=== PATIENT | male | born 1990 | race Two or more races ===

== ENCOUNTER 2018-07-08 17:02 | Emergency (ER) | payer OTHER, MEDICAID ==
[~2018-07-08] VITALS: Ht 177.8 cm; Wt 59.0 kg
[2018-07-08 17:23] VITALS: BP 129/76
[2018-07-08] MEDS ORDERED: fentaNYL CITRATE 100 MCG/2 ML VL IV ONE (18:45)
[2018-07-08] MEDS ORDERED: KETOROLAC TROMETH 30 MG/ML 1ML VIAL IV ONE (18:45)
== END 2018-07-08 22:39 | disposition left against medical advice (07) ==
LOC: ER 17:02
DX: S22.051A Stable burst fracture of T5-T6 vertebra, initial encounter for closed fracture (principal); Z53.29 Procedure and treatment not carried out because of patient's decision for other reasons; X50.1XXA Overexertion from prolonged static or awkward postures, initial encounter; Y93.89 Activity, other specified; Y99.8 Other external cause status; Y92.89 Other specified places as the place of occurrence of the external cause
CPT/HCPCS: 72128; 94761; 96374; 96375; 99284; J1885; J3010

== ENCOUNTER 2018-12-07 17:09 | Emergency (ER) | payer OTHER, MEDICAID ==
[~2018-12-07] VITALS: Ht 177.8 cm; Wt 59.0 kg
[2018-12-07 17:22] VITALS: BP 99/68
[2018-12-07] MEDS ORDERED: IBUPROFEN 800 MG TAB PO ONE (17:30)
[2018-12-07] MEDS ORDERED: LACTULOSE 20Gm/30ML SOLN PO ONE (20:30)
[2018-12-07] MEDS ORDERED: HYDROcodone-ACET 10/325MG TAB PO ONE (20:30)
== END 2018-12-07 20:45 | disposition home or self-care (01) ==
LOC: ER 17:09
DX: G89.29 Other chronic pain (principal); F11.10 Opioid abuse, uncomplicated
CPT/HCPCS: 72070

== ENCOUNTER 2020-01-22 10:49 | Emergency (ER) | payer MEDICAID, OTHER ==
[~2020-01-22] VITALS: Ht 177.8 cm; Wt 63.5 kg
[2020-01-22 12:00] VITALS: BP 109/70
[2020-01-22] MEDS ORDERED: ACETAMINOPHEN 500 MG TAB PO ONE (12:30)
[2020-01-22] MEDS ORDERED: BACITRACIN TOP OINT 1 UD PKG TOP ONE (12:30)
[2020-01-22] MEDS ORDERED: LIDOCAINE 1% HCL (LOCAL ANESTH.) INJ 20ML MDV IJ ONE (12:30)
== END 2020-01-22 13:57 | disposition home or self-care (01) ==
LOC: ER 10:49
DX: S61.216A Laceration without foreign body of right little finger without damage to nail, initial encounter (principal); F17.210 Nicotine dependence, cigarettes, uncomplicated; W26.8XXA Contact with other sharp object(s), not elsewhere classified, initial encounter; Y93.89 Activity, other specified; Y92.89 Other specified places as the place of occurrence of the external cause; Y99.8 Other external cause status
CPT/HCPCS: 12001; 99283; J2001

== ENCOUNTER 2023-12-06 21:20 | Emergency (ER) | payer MEDICAID, OTHER ==
[~2023-12-06] VITALS: Ht 177.8 cm; Wt 60.1 kg
[2023-12-06 21:30] VITALS: BP 118/82; PULSE 116; RESP 22; O2SAT 97
[2023-12-06] MEDS ORDERED: diphenhdrAMINE HCL 50 MG/1 ML VL IM ONE (22:00)
[2023-12-06] MEDS ORDERED: KETOROLAC TROMETH 30 MG/ML 1ML VIAL IM ONE (22:00)
[2023-12-06] MEDS ORDERED: ONDANSETRON HCL 4 MG/2 ML VIAL IM ONE (22:00)
== END 2023-12-07 04:24 | disposition home or self-care (01) ==
LOC: ER 21:20
DX: R51.9 Headache, unspecified (principal); F17.210 Nicotine dependence, cigarettes, uncomplicated; F12.90 Cannabis use, unspecified, uncomplicated
CPT/HCPCS: 70450

== ENCOUNTER → 2024-07-12 | Outpatient (CLI) | payer OTHER ==
[2024-07-12 16:19] LABS: Hepatitis B Surface Antibody Positive (Negative); Hepatitis B Surface Antigen Negative (Negative)
== END | disposition home or self-care (01) ==
LOC: LAB 14:30
PROVIDERS: ATTEND Nurse Practitioner
DX: Z01.89 Encounter for other specified special examinations (principal); Z20.6 Contact with and (suspected) exposure to human immunodeficiency virus [HIV]; Z20.5 Contact with and (suspected) exposure to viral hepatitis
CPT/HCPCS: 36415; 86703; 86706; 86803; 87340